=== PATIENT | male | born 1990 | race African-American/Black ===

== ENCOUNTER 2017-04-03 12:56 | Emergency (ER) | payer OTHER ==
[2017-04-03 13:00] VITALS: BP 139/77; PULSE 91; TEMP 98.4; BMI 25.0
[2017-04-03] MEDS ORDERED: KETOROLAC TROMETHAMINE 60 MG/2 ML VIAL ONE (15:14)
[2017-04-03] MEDS ORDERED: KETOROLAC TROMETHAMINE 60 MG/2 ML VIAL IM ONE (15:15)
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
== END 2017-04-03 15:59 | disposition home or self-care (01) ==
LOC: JERFT 12:56
PROC: 3E0233Z Introduction of Anti-inflammatory into Muscle, Percutaneous Approach (ICD-10-PCS; principal; 2017-04-03)
DX: M54.6 Pain in thoracic spine (principal); V43.51XA Car driver injured in collision with sport utility vehicle in traffic accident, initial encounter; Y92.414 Local residential or business street as the place of occurrence of the external cause; Y93.89 Activity, other specified; Y99.9 Unspecified external cause status
CPT/HCPCS: 99281-25

== ENCOUNTER 2017-04-30 15:45 | Emergency (ER) | payer OTHER ==
[2017-04-30 15:59] VITALS: BP 138/71; PULSE 85; TEMP 98.2; BMI 25.0
--- NOTE | 2017-04-30 17:15 | PDOC ---
History of Present Illness - General Chief Complaint: Pain Stated Complaint: RT THUMB PAIN Time Seen by Provider: 04/30/17 16:51 History Source: Patient Exam Limitations: No Limitations - History of Present Illness Initial Comments: 04/30/17 17:24 My chief complaint: Right thumb pain with lifting of part of the nail History of present illness: Patient is a 26-year-old male with no significant medical problems here today complaining of closing car door on his right thumb 2 months ago. Patient did not seek any medical help at the time. Patient noted that nail proximally was dark and painful, proximal aspect of nail lifted and there had been some bleeding from that area. Last week he noted a new nail growing out.Pt. continues to have discomfort of rt. thumb. Pt. denies numbness of thumb. 04/30/17 17:27 05/01/17 20:06 Occurred: reports: other (2 months ago slammed in car door, 1 week ago new nail growing in under it) Severity: reports: mild Pain Location: reports: upper extremity (rt. thumb ) Method of Injury: Yes: direct blow (by car door ) Modifying Factors: improves with: None Loss of Consciousness: no loss of consciousness Associated Symptoms (Fall): other (new nail growing in under rt. thumn) Past History - Past Medical History Allergies/Adverse Reactions: Allergies Allergy/AdvReac Type Severity Reaction Status Date / Time No Known Allergies Allergy Verified 04/30/17 15:59 Home Medications: Ambulatory Orders NK [No Known Home Medication] 04/30/17 Other medical history: DENIES. - Psycho/Social/Smoking Cessation Hx Suicidal Ideation: No Smoking History: Never smoked Hx Alcohol Use: Yes (occassionally.) Drug/Substance Use Hx: No Substance Use Type: Alcohol Review of Systems - Review of Systems Able to Perform ROS?: Yes Constitutional: No: Symptoms Reported HEENTM: No: Symptoms Reported Respiratory: No: Symptoms reported Cardiac (ROS): No: Symptoms Reported ABD/GI: No: Symptoms Reported : No: Symptoms Reported Musculoskeletal: Yes: Joint Pain (rt. thumb discomfort). No: Joint Swelling Integumentary: Yes: Other (new nail growing under rt. thumb nail ) Neurological: No: Symptoms reported *Physical Exam - Vital Signs Last Vital Signs Temp Pulse Resp BP Pulse Ox 98.2 F 85 18 138/71 99 04/30/17 15:56 04/30/17 15:56 04/30/17 15:56 04/30/17 15:56 04/30/17 15:56 - Physical Exam General Appearance: Yes: Appropriately Dressed Comments:: 04/30/17 17:19 radial pulse 4 + rt. n Extremity: positive: Normal Capillary Refill, Normal Range of Motion (rt. thumb at MCP, PIP AND DIP), Tender (rt.thumb slgithly ) Integumentary: positive: Normal Color, Other (proximal rt. thumb nailbed lifted , new nail growing out) Neurologic: positive: Normal Response, Respond to painful stimul (rt thumb ) Medical Decision Making - Medical Decision Making 04/30/17 17:27 Patient is a 26-year-old male with no significant medical problems here today complaining of closing car door on his right thumb 2 months ago. Patient did not seek any medical help at the time. Patient noted that nail proximally was dark and painful, proximal aspect of nail lifted and there had been some bleeding from that area. Last week he noted a new nail growing out.Pt. continues to have discomfort of rt. thumb. Ptg. denies numbness of thumb. Rt thumb injury with resolved subungal hematoma resulting in lifting off proximal aspect of thumb with new nailgrowth noted PLAN: xray right thumb no juan injury, soft tissue abnormality most likely nailbed or laceration per Dr. NAV wheeleraid applied to rt. thumb 04/30/17 18:22 *DC/Admit/Observation/Transfer Diagnosis at time of Disposition: Nailbed injury - Discharge Dispostion Disposition: HOME Condition at time of disposition: Stable - Referrals Referrals: Tereso Barbour MD [Primary Care Provider] - - Patient Instructions Additional Instructions: Patient is your right thumb as usual dry thoroughly apply bandaid to prevent something from catching on nail Your primary care provider for further evaluation Return to emergency room if any further injury to nail bed Patient voiced understanding of discharge instructions and all questions were answered
== END 2017-04-30 18:32 | disposition home or self-care (01) ==
LOC: JERFT 15:45
DX: S60.111A Contusion of right thumb with damage to nail, initial encounter (principal); V88.8XXA Person injured in other specified noncollision transport accidents involving motor vehicle, nontraffic, initial encounter; Y92.488 Other paved roadways as the place of occurrence of the external cause; Y93.89 Activity, other specified
CPT/HCPCS: 73140-TC-RT; 99281-25